=== PATIENT | female | born 1975 | race American Indian/Alaskan Native ===

== ENCOUNTER 2017-11-18 19:44 | Emergency (ER) | payer SELFPAY ==
[2017-11-18] MEDS ORDERED: HYDROmorphone 0.5 MG/0.5 ML Syringe IVPUSH ONE (20:11)
[2017-11-18] MEDS ORDERED: Famotidine 20 MG/2 ML SDV IVPUSH ONE (20:11)
[2017-11-18] MEDS ORDERED: Ondansetron 4 MG/2 ML SDV IVPUSH ONE (20:11)
[2017-11-18] MEDS ORDERED: Sodium Chloride 0.9% 10 ML Syringe FLUSH PRN (20:11)
[2017-11-18] MEDS ORDERED: Sodium Chloride 0.9% 1,000 ML IV ONE (20:55)
[2017-11-18] MEDS ORDERED: Alum Hydrox/Mag Hydrox/Simeth 30 ML, Lidocaine 2% 15 ML PO ONE ×2 (21:17)
[2017-11-18] MEDS ORDERED: HYDROmorphone 0.5 MG/0.5 ML Syringe IVPUSH STA (22:18)
--- NOTE | 2017-11-18 22:35 | EDM.PDOC ---
ED HPI GENERAL MEDICAL PROBLEM - General Chief Complaint: Chest Pain Stated Complaint: CHEST PAIN Time Seen by Provider: 11/18/17 20:04 Source of Information: Reports: Patient, RN Notes Reviewed - History of Present Illness INITIAL COMMENTS - FREE TEXT/NARRATIVE: 42-year-old female comes in with severe upper abdominal pain. Became severe about 4-5 hours ago this past late afternoon. She's been having difficulty with upper abdominal discomfort for much of the last 2 weeks but became more severe this evening. She has had some nausea, diminished appetite. No vomiting or diarrhea. She denies being constipated. No fever or chills. Not aware of ever having had her gallbladder removed. She does at times get burning discomfort of that area of her upper abdomen that will radiate to the lower chest. No Shortness of breath or difficulty breathing. She had quite severe cough 10-14 days ago. She was prescribed a Z-Norbert, finished that a few days ago. Upper Abdomen Pain Score (Numeric/FACES): 10 - Related Data Allergies Allergy/AdvReac Type Severity Reaction Status Date / Time No Known Allergies Allergy Verified 11/18/17 20:07 Home Meds: Home Meds Omeprazole 40 mg PO DAILY #20 cap.sr 11/19/17 [Rx] Past Medical History - Past Surgical History Female Surgical History: Reports: Tubal Ligation Social & Family History - Family History Cardiac: Reports: IN - Tobacco Use Smoking Status *Q: Current Every Day Smoker Years of Tobacco use: 30 Packs/Tins Daily: 1 - Caffeine Use Caffeine Use: Reports: Coffee - Recreational Drug Use Recreational Drug Use: No ED ROS GENERAL - Review of Systems Review Of Systems: See Below Constitutional: Denies: Fever, Chills, Diaphoresis HEENT: Denies: Throat Pain Respiratory: Reports: Cough (She was ill with bad cough a couple of weeks ago, now better). Denies: Shortness of Breath, Pleuritic Chest Pain GI/Abdominal: Reports: Abdominal Pain (Upper abdominal), Decreased Appetite, Nausea. Denies: Diarrhea, Vomiting Musculoskeletal: Reports: Back Pain (Her upper abdominal discomfort does radiate to her back) Skin: Reports: No Symptoms Neurological: Reports: Dizziness ED EXAM, GI/ABD - Physical Exam Exam: See Below General Appearance: Alert, Moderate Distress Throat/Mouth: Normal Inspection, Normal Oropharynx Head: No: Facial Swelling Neck: Supple, Full Range of Motion Respiratory/Chest: No Respiratory Distress, Lungs Clear, Normal Breath Sounds Cardiovascular: Regular Rate, Rhythm GI/Abdominal Exam: Tender (Very tender upper mid abdomen, mild to moderate tenderness right upper quadrant.), Other (Lower abdomen is soft and nontender). No: Guarding, Rebound Back Exam: No: CVA Tenderness (L), Paraspinal Tenderness Neurological: Alert, Oriented, No Motor/Sensory Deficits Skin Exam: Warm, Dry, Normal Color EKG INTERPRETATION EKG Date: 11/18/17 Rhythm: NSR [place]: Normal P-Wave: Present ST-T: Normal Course - Vital Signs Last Recorded V/S: Last Vital Signs Temp 97.7 F 11/18/17 19:54 Pulse 67 11/18/17 20:24 Resp 18 11/18/17 20:24 BP 115/65 11/18/17 20:24 Pulse Ox 100 11/18/17 20:24 - Orders/Labs/Meds Orders: Active Orders 24 hr Category Date Time Status EKG 12 Lead [EKG Documentation Completion] [RC] STAT Care 11/18/17 20:04 Active Peripheral IV Care [RC] . DIRECTED Care 11/18/17 20:11 Active Abdomen 2V AP Flat Upright [CR] Stat Exams 11/18/17 22:52 Taken Abdomen Ltd [US] Stat Exams 11/18/17 22:35 Taken Sodium Chloride 0.9% [Saline Flush] Med 11/18/17 20:11 Active 10 ml FLUSH ASDIRECTED PRN Peripheral IV Insertion Adult [OM.PC] Stat Oth 11/18/17 20:11 Ordered Medication Orders Sodium Chloride (Saline Flush) 10 ml FLUSH ASDIRECTED PRN PRN Reason: Keep Vein Open Last Admin: 11/18/17 20:18 Dose: 10 ml Labs: Laboratory Tests 11/18/17 11/18/17 Range/Units 20:00 20:00 WBC 11.18 H (3.98-10.04) K/mm3 RBC 4.53 (3.98-5.22) M/mm3 Hgb 13.6 (11.2-15.7) gm/L Hct 41.9 (34.1-44.9) % MCV 92.5 (79.4-94.8) fl MCH 30.0 (25.6-32.2) pg MCHC 32.5 (32.2-35.5) g/dl RDW Std Deviation 42.8 (36.4-46.3) fL Plt Count 321 (182-369) K/mm3 MPV 9.9 (9.4-12.3) fl Neut % (Auto) 88.2 H (34.0-71.1) % Lymph % (Auto) 9.6 L (19.3-51.7) % [place] % (Auto) 1.6 L (4.7-12.5) % Eos % (Auto) 0.2 L (0.7-5.8) Baso % (Auto) 0.2 (0.1-1.2) % Neut # (Auto) 9.87 H (1.56-6.13) K/mm3 Lymph # (Auto) 1.07 L (1.18-3.74) K/mm3 [place] # (Auto) 0.18 L (0.24-0.36) K/mm3 Eos # (Auto) 0.02 L (0.04-0.36) K/mm3 Baso # (Auto) 0.02 (0.01-0.08) K/mm3 Manual Slide Review Normal smear Sodium 140 (136-145) mEq/L Potassium 3.9 (3.5-5.1) mEq/L Chloride 105 (98-107) mEq/L Carbon Dioxide 23 (21-32) mEq/L Anion Gap 15.9 H (5-15) BUN 9 (7-18) mg/dL Creatinine 0.7 (0.55-1.02) mg/dL Est Cr Clr Drug Dosing 89.48 mL/min Estimated GFR (MDRD) > 60 (>60) mL/min BUN/Creatinine Ratio 12.9 L (14-18) Glucose 111 H (74-106) mg/dL Calcium 9.7 (8.5-10.1) mg/dL Total Bilirubin 0.5 (0.2-1.0) mg/dL AST 18 (15-37) U/L ALT 22 (14-59) U/L Alkaline Phosphatase 79 (46-116) U/L Total Protein 7.5 (6.4-8.2) g/dl Albumin 4.1 (3.4-5.0) g/dl Globulin 3.4 gm/dL Albumin/Globulin Ratio 1.2 (1-2) Lipase 174 (73-393) U/L Meds: Medications Generic Name Dose Route Start Last Admin Trade Name Brenda PRN Reason Stop Dose Admin Sodium Chloride 10 ml 11/18/17 20:11 11/18/17 20:18 Saline Flush FLUSH 10 ml ASDIRECTED PRN Administration Keep Vein Open Discontinued Medications Generic Name Dose Route Start Last Admin Trade Name Brenda PRN Reason Stop Dose Admin Al Hydroxide/Mg Hydroxide 30 0 ml 11/18/17 21:17 11/18/17 21:27 ml/ Lidocaine HCl 15 ml PO 11/18/17 21:18 45 ml ONETIME ONE Administration Famotidine 20 mg 11/18/17 20:11 11/18/17 20:17 Pepcid IVPUSH 11/18/17 20:12 20 mg ONETIME ONE Administration Hydromorphone HCl 0.5 mg 11/18/17 20:11 11/18/17 20:17 Dilaudid IVPUSH 11/18/17 20:12 0.5 mg ONETIME ONE Administration Hydromorphone HCl 0.5 mg 11/18/17 22:18 11/18/17 22:22 Dilaudid IVPUSH 11/18/17 22:19 0.5 mg NOW STA Administration Sodium Chloride 1,000 mls @ 999 mls/hr 11/18/17 20:55 11/18/17 21:05 Normal Saline IV 11/18/17 21:55 999 mls/hr ONETIME ONE Administration Magnesium Citrate 296 ml 11/19/17 00:36 11/19/17 00:44 Citrate Of Magnesia PO 11/19/17 00:37 296 ml ONETIME ONE Administration Ondansetron HCl 4 mg 11/18/17 20:11 11/18/17 20:17 Zofran IVPUSH 11/18/17 20:12 4 mg ONETIME ONE Administration - Re-Assessments/Exams Free Text/Narrative Re-Assessment/Exam: 11/19/17 00:03. White blood count mildly elevated. Liver enzymes, bilirubin and alkaline phosphatase are normal. Lipase normal. I did order ultrasound of her gallbladder. Ultrasound was not visualized per verbal report from soil field technician. Radiology report shows common bile duct diameter 4.4 mm, no stones, no dilatation. No intrahepatic duct dilatation. See report for further detail. 11/19/17 00:35. Flat and upright of the abdomen does show increased stool and gas pattern primarily in the transverse colon and to some extent ascending and descending. She is resting fairly comfortably at this time. She has had Dilaudid 0.5 mg IV twice IV as well as IV Zofran and Pepcid. Very minimal tenderness upper mid abdomen at this time. Discharge instructions as documented Departure - Departure Time of Disposition: 22:33 Disposition: Home, Self-Care 01 Condition: Fair Clinical Impression: Abdominal pain Qualifiers: Abdominal location: epigastric Qualified Code(s): R10.13 - Epigastric pain - Discharge Information Prescriptions: Omeprazole 40 mg PO DAILY #20 cap.sr Instructions: Abdominal Pain, Adult, [id number] Referrals: PCP,None [Primary Care Provider] - Forms: ED Department Discharge, ED Return to Work/School Form Additional Instructions: Omeprazole 40 mg daily for the next 2 weeks, clear liquids and very bland diet as tolerated, probiotic 2-3 times daily for the next week to 10 days or until symptoms have completely resolved. Mag citrate, drink part of the bottle now, drink the remainder later this morning. Symptoms should now gradually get better over the next few days. Follow-up with your regular medical provider early to mid next week for recheck, return to ED as needed if symptoms worsening in any way. - My Orders Last 24 Hours: My Active Orders 11/18/17 20:04 EKG 12 Lead [EKG Documentation Completion] [RC] STAT 11/18/17 20:11 Peripheral IV Care [RC] . DIRECTED Sodium Chloride 0.9% [Saline Flush] 10 ml FLUSH ASDIRECTED PRN Peripheral IV Insertion Adult [OM.PC] Stat 11/18/17 22:35 Abdomen Ltd [US] Stat 11/18/17 22:52 Abdomen 2V AP Flat Upright [CR] Stat - Assessment/Plan Last 24 Hours: My Active Orders 11/18/17 20:04 EKG 12 Lead [EKG Documentation Completion] [RC] STAT 11/18/17 20:11 Peripheral IV Care [RC] . DIRECTED Sodium Chloride 0.9% [Saline Flush] 10 ml FLUSH ASDIRECTED PRN Peripheral IV Insertion Adult [OM.PC] Stat 11/18/17 22:35 Abdomen Ltd [US] Stat 11/18/17 22:52 Abdomen 2V AP Flat Upright [CR] Stat
[2017-11-19] MEDS ORDERED: Magnesium Citrate Solution 296 ML Bottle PO ONE (00:36)
--- NOTE | 2017-11-19 07:02 | US ---
Addendum: Patient brought back for additional imaging of the gallbladder. This exam shows the gallbladder to be contracted around multiple gallstones. Gallbladder wall shows no discrete thickening. Common bile duct and common hepatic duct measure within normal limits. Impression: 1. Contracted gallbladder around multiple gallstones. Diagnostic code #3 --- Addendum1 above dictated on [11/19/2017 17:02] by [Van Serrano, Hal Parrish] --- --- Addendum1 above signed on [11/19/2017 17:02] by [Van Serrano, Hal Parrish] --- --- Original report below dictated on [11/19/2017 06:21] by [Van Serrano, Hal Parrish] --- --- Original report below signed on [11/19/2017 06:58] by [Van Serrano, Hal Parrish] --- Limited abdominal ultrasound: Multiple real-time images of the upper right abdomen were obtained. Liver shows no focal parenchymal abnormality. Gallbladder not visualized. Common bile duct measures within normal limits. Pancreas appears within normal limits as seen. Right kidney shows no hydronephrosis or mass and has a length of 11.2 cm. Inferior vena cava is patent. Portal vein shows normal hepatopedal flow. Impression: 1. Nonvisualization of the gallbladder. 2. No additional abnormality is identified on right upper quadrant abdominal ultrasound. Diagnostic code #2 --- Addendum1 signed ---
--- NOTE | 2017-11-19 07:02 | CR ---
Abdomen: Supine and upright views of the abdomen were obtained. Comparison: No prior abdominal x-ray. Calcifications are seen within the upper right abdomen. Difficult to exclude gallstones although gallbladder not visualized on recent ultrasound. Findings could otherwise represent a calcified lymph node. Bowel gas pattern appears within normal limits. Phlebolith is seen within the left pelvis. No free air is seen. No discrete soft tissue abnormality is seen. Impression: 1. Calcifications within the upper right abdomen. Differential includes gallstones (although gallbladder not seen on recent ultrasound) or calcified lymph node. 2. Two-view abdominal study is otherwise unremarkable. Diagnostic code #3
== END 2017-11-19 00:55 | disposition home or self-care (01) ==
LOC: JD.ED 19:44
DX: R10.13 Epigastric pain (principal); F17.210 Nicotine dependence, cigarettes, uncomplicated; Z79.899 Other long term (current) drug therapy
CPT/HCPCS: 36415; 74019; 74019-26; 76705; 76705-26; 80053; 83690; 85025; 93005; 93010; 96361; 96374; 96375; 96376; 99284-25; 99285-25; A9270-GY; J1170; J2405; J7040; J7050

== ENCOUNTER 2017-11-23 09:35 | Day surgery (SDC) | payer OTHER, SELFPAY ==
[~2017-11-23 09:35] MED LIST: Lidocaine 1%/Sod Bicarbonate in NS 8.4% 1 ML Syringe IDERM PRN; Sodium Chloride 0.9% 10 ML Syringe FLUSH PRN
[2017-11-23] MEDS: Lactated Ringers 1,000 ML IV SCH ×2 (10:06→23:40)
--- NOTE | 2017-11-23 10:26 | PCM.PREANE ---
Preanesthetic Assessment - Procedure Proposed Procedure: Laparoscopic Cholecystectomy - Anesthesia/Transfusion/Family Hx Anesthesia History: Prior Anesthesia Without Reaction Family History of Anesthesia Reaction: No Transfusion History: No Prior Transfusion(s) - Review of Systems General: Appetite (Decreased.) Pulmonary: Cough (occasionaly productive, infrequent), Other (Smoker 1 ppd, last one this morning. ) Cardiovascular: No Symptoms Gastrointestinal: Abdominal Pain, Difficulty Swallowing (With her sore throat about 10 days ago. Much improved at this time. ) Neurological: Dizziness, Other (Back Pain) Other: Reports: Throat Pain (Improving, on steroids. Right Tonsilar Hypertrophy. ), Depression, Anxiety - Physical Assessment NPO Status Date: 11/23/17 NPO Status Time: 06:30 O2 Sat by Pulse Oximetry: 98 Respiratory Rate: 16 Vital Signs: Last Vital Signs Temp 36.4 C 11/23/17 09:45 Pulse 64 11/23/17 09:45 Resp 16 11/23/17 09:45 BP 126/77 11/23/17 09:45 Pulse Ox 98 11/23/17 09:45 Height: 1.63 m Weight: 73.482 kg Mental Status: Alert & Oriented x3 Airway Class: Mallampati = 1 Dentition: Reports: Caries (Discolored, appear in poor condition. Denies any lose teeth. ) Thyro-Mental Finger Breadths: 2 Mouth Opening Finger Breadths: 3 ROM/Head Extension: Full Lungs: Clear to Auscultation, Normal Respiratory Effort Cardiovascular: Regular Rate, Regular Rhythm - Imaging/EKG Impressions: EKG NSR 73bpm - Allergies Allergies/Adverse Reactions: Allergies Allergy/AdvReac Type Severity Reaction Status Date / Time No Known Allergies Allergy Verified 11/18/17 20:07 - Acknowledgements Anesthesia Type Planned: General Anesthesia Pt an Appropriate Candidate for the Planned Anesthesia: Yes Alternatives and Risks of Anesthesia Discussed w Pt/Guardian: Yes Pt/Guardian Understands and Agrees with Anesthesia Plan: Yes Additional Comments: Patient was diagnosed with influenza 11/02/17. She also had a terrible sore throat. She has frequent problems with tonsilar infections. She was prescribed a z pack and steroid pack. She finished her z pack 5 days ago. She feels better and wishes to proceed with her surgery. She has 2 days left of her steroid. She no longer has a sore throat. She does have chronic inflammation of her right tonsil. Denies possibility of . Tubal ligation noted as well. PreAnesthesia Questionnaire SEAMSTRESS FITTER History: Reports: Endometriosis - Past Surgical History Female Surgical History: Reports: Tubal Ligation - SUBSTANCE USE Smoking Status *Q: Current Every Day Smoker Tobacco Use Within Last Twelve Months: Cigarettes Recreational Drug Use History: No - HOME MEDS Home Medications: Home Meds Omeprazole 40 mg PO DAILY #20 cap.sr 11/19/17 [Rx] Ferrous Sulfate [Iron] 325 mg PO DAILY 11/23/17 [History] methylPREDNISolone [Medrol] 4 mg PO DAILY 11/23/17 [History] - CURRENT (IN HOUSE) MEDS Current Meds: Current Medications Lactated Ringer's (Ringers, Lactated) 1,000 mls @ 125 mls/hr IV ASDIRECTED JAKUB Last Admin: 11/23/17 10:06 Dose: 125 mls/hr Lidocaine/Sodium Bicarbonate (Buffered Lidocaine 1% In Ns 8.4%) 0.25 ml IDERM ONETIME PRN PRN Reason: Prior to IV Start Last Admin: 11/23/17 10:06 Dose: 0.25 ml Sodium Chloride (Saline Flush) 10 ml FLUSH ASDIRECTED PRN PRN Reason: Keep Vein Open
[2017-11-23] MEDS ORDERED: Bupivacaine 0.5%/EPINEPHrine 1:200,000 50 ML MDV ONE (10:40)
[2017-11-23] MEDS ORDERED: Lidocaine 1% with EPINEPHrine 1:100,000 20 ML MDV ONE (10:40)
[2017-11-23] MEDS ORDERED: Propofol 200 MG/20 ML SDV ONE (11:08)
[2017-11-23] MEDS ORDERED: Midazolam 1 MG/ML 2 ML SDV ONE (11:09)
[2017-11-23] MEDS ORDERED: fentaNYL 250 MCG/5 ML SDV ONE ×2 (11:09→12:09)
[2017-11-23] MEDS ORDERED: Dexamethasone 4 MG/ML SDV ONE ×3 (11:10→11:25)
[2017-11-23] MEDS ORDERED: Ondansetron 4 MG/2 ML SDV ONE (11:10)
[2017-11-23] MEDS ORDERED: Lidocaine 1% 4 ML ONE (11:10)
[2017-11-23] MEDS ORDERED: Rocuronium 50 MG/5 ML Vial ONE (11:10)
[2017-11-23] MEDS ORDERED: Lactated Ringers 1,000 ML ONE (11:23)
[2017-11-23] MEDS ORDERED: Ketorolac 30 MG/ML SDV ONE (11:24)
[2017-11-23] MEDS ORDERED: Lidocaine 1% 2 ML ONE ×2 (11:24)
[2017-11-23] MEDS ORDERED: HYDROmorphone 1 MG/ML Syringe ONE ×2 (11:26→12:04)
[2017-11-23] MEDS ORDERED: ceFAZolin 1 GM Vial ONE ×2 (11:28)
[2017-11-23] MEDS ORDERED: diphenhydrAMINE 50 MG/ML SDV IVPUSH PRN (11:49)
[2017-11-23] MEDS ORDERED: fentaNYL 100 MCG/2 ML SDV IVPUSH PRN (11:49)
[2017-11-23] MEDS ORDERED: Ondansetron 4 MG/2 ML SDV IVPUSH PRN (11:49)
[2017-11-23] MEDS ORDERED: Midazolam 1 MG/ML 2 ML SDV IVPUSH PRN (11:49)
[2017-11-23] MEDS ORDERED: Neostigmine Methylsulfate 1 MG/ML 5 ML Syringe ONE (12:05)
[2017-11-23] MEDS ORDERED: Labetalol 100 MG/20 ML MDV ONE (12:18)
--- NOTE | 2017-11-23 12:49 | PCM.OPNOTE ---
- General Post-Op/Procedure Note Date of Surgery/Procedure: 11/23/17 Operative Procedure(s): Laparoscopic cholecystectomy Findings: Chronically inflamed gallbladder with a contracted gallbladder wall and sclerosis of the cystic duct. There was bile sludge. Pre Op Diagnosis: Cholecystitis secondary to cholelithiasis Post-Op Diagnosis: Same Anesthesia Technique: General ET Tube, Local Primary Surgeon: Reid Schaefer Pathology: Gallbladder and contents EBL in mLs: 20 Complications: None Condition: Good Free Text/Narrative:: After adequate general endotracheal tube anesthesia was obtained the patient's abdomen was prepped and draped for a laparoscopic cholecystectomy. After local analgesia was given a supraumbilical incision was made with a 15 blade. The midline was entered. A 12 mm camera port was then inserted under direct vision. CO2 pneumoperitoneum was obtained. 3 -- 5 mm working ports were placed along the right costal margin. Exploration revealed filmy adhesions between the omentum and the body of the gallbladder. The gallbladder was contracted and sclerotic. There was brownish green sludge within the gallbladder. The cystic duct was sclerotic from chronic inflammatory change. I grasped the fundus of the gallbladder and retracted it and the liver in a cephalad direction. I used the hook cautery to separate the omentum from the body of the gallbladder. I grasped Hill's pouch and then divided the peritoneum overlying the gallbladder pulling the cystic duct and cystic artery out to length. The structures were then clipped in continuity then divided with scissors. I took the gallbladder down in a retrograde fashion from its bed with the hook cautery. The gallbladder was placed in a specimen bag and removed through the umbilicus. I irrigated out the gallbladder bed and the right upper quadrant. Reinspection revealed no bile duct leak and no bowel injury. I decannulated the abdomen under direct vision and there was no bleeding from the port sites. The supraumbilical site was closed with a [id number] 0 Vicryl suture. The subcutaneous tissues and skin were closed with Vicryl as well. Steri-Strips and gauze were used for the dressing. Central Office Trouble Shooter photographs were taken for the patient and for the medical record. There were no procedural complications.
--- NOTE | 2017-11-23 12:53 | PCM.POSTAN ---
POST ANESTHESIA ASSESSMENT - MENTAL STATUS Mental Status: Alert - VITAL SIGNS Pulse Rate: 86 SaO2: 97 Resp Rate: 11 Blood Pressure: 149/74 Temperature: 36.5 C - RESPIRATORY Respiratory Status: Respiratory Rate WNL, Airway Patent, O2 Saturation Stable, Supplemental Oxygen - CARDIOVASCULAR CV Status: Pulse Rate WNL, Blood Pressure Stable - GASTROINTESTINAL GI Status: No Symptoms - POST OP HYDRATION Hydration Status: Adequate & Stable
[2017-11-23] MEDS ORDERED: Glycopyrrolate 0.2 MG/ML 5 ML MDV IVPUSH PRN (13:09)
--- NOTE | 2017-11-23 13:31 | PCM48HPAN ---
Post Anesthesia Note - EVALUATION WITHIN 48HRS OF ANESTHETIC Vital Signs in Normal Range: Yes Patient Participated in Evaluation: Yes Respiratory Function Stable: Yes Airway Patent: Yes Cardiovascular Function Stable: Yes Hydration Status Stable: Yes Pain Control Satisfactory: Yes Nausea and Vomiting Control Satisfactory: Yes Mental Status Recovered: Yes Pulse Rate: 86 SaO2: 100 Resp Rate: 16 Temperature: 36.5 C Blood Pressure: 149/74 Pulse Rate: 65 - COMMENTS/OBSERVATIONS Free Text/Narrative:: Patient c/o dizziness with a HR of 46 in the PACU. Robynol 0.2mg IV given with HR responding appropriately in the 60's. Verbal reassurance given with all other vitals stable at this time.
[2017-11-23] MEDS ORDERED: Ondansetron 4 MG Tab.DIS PO PRN (14:16)
[2017-11-23] MEDS: Acetaminophen/Codeine 300-30 MG Tab PO PRN ×2 (16:46→20:40)
[2017-11-23] MEDS: Glycopyrrolate 1 MG Tab PO SCH ×2 (17:23→23:36)
[2017-11-24] MEDS: Acetaminophen/Codeine 300-30 MG Tab PO PRN ×2 (01:24→08:28)
[2017-11-24] MEDS ORDERED: Temazepam 15 MG Cap PO PRN (01:31)
--- NOTE | 2017-11-24 06:53 | PCM.SURGPN ---
- General Info Date of Service: 11/24/17 POD#: 1 Functional Status: Reports: Pain Controlled, Tolerating Diet, Ambulating, Urinating - Review of Systems Gastrointestinal: Reports: Other (Nausea much better.) - Patient Data Vitals - Most Recent: Last Vital Signs Temp 36.6 C 11/23/17 21:00 Pulse 52 L 11/23/17 21:00 Resp 18 11/23/17 21:00 BP 141/87 H 11/23/17 21:00 Pulse Ox 98 11/23/17 21:00 Weight - Most Recent: 73.482 kg I&O - Last 24 Hours: Intake & Output 11/23/17 11/23/17 11/24/17 14:59 22:59 06:59 Intake Total 500 Balance 500 Med Orders - Current: Current Medications Acetaminophen/Codeine Phosphate (Tylenol With Codeine No.3 300mg/30mg) 2 tab PO Q4H PRN PRN Reason: Pain Last Admin: 11/24/17 01:24 Dose: 2 tab Glycopyrrolate (Robinul) 1 mg PO Q8H JAKUB Last Admin: 11/23/17 23:36 Dose: 1 mg Lactated Ringer's (Ringers, Lactated) 1,000 mls @ 125 mls/hr IV ASDIRECTED JAKUB Last Admin: 11/23/17 23:40 Dose: 125 mls/hr Lidocaine/Sodium Bicarbonate (Buffered Lidocaine 1% In Ns 8.4%) 0.25 ml IDERM ONETIME PRN PRN Reason: Prior to IV Start Last Admin: 11/23/17 10:06 Dose: 0.25 ml Methylprednisolone (Medrol) 4 mg PO DAILY [facility] Ondansetron HCl (Zofran Odt) 4 mg PO Q8H PRN PRN Reason: Nausea/Vomiting Pantoprazole Sodium (Protonix) 40 mg PO DAILY [facility] Sodium Chloride (Saline Flush) 10 ml FLUSH ASDIRECTED PRN PRN Reason: Keep Vein Open Temazepam (Restoril) 15 mg PO BEDTIME PRN PRN Reason: sleep Last Admin: 11/24/17 01:47 Dose: 15 mg Discontinued Medications Bupivacaine HCl/Epinephrine Bitart (Marcaine 0.5%/Epinephrine 1:200,000) Confirm Administered Dose 50 ml .ROUTE .STK-MED ONE Stop: 11/23/17 10:41 Last Admin: 11/23/17 11:47 Dose: 11 ml Cefazolin Sodium (Ancef) Confirm Administered Dose 1 gm .ROUTE .STK-MED ONE Stop: 11/23/17 11:29 Cefazolin Sodium (Ancef) Confirm Administered Dose 1 gm .ROUTE .STK-MED ONE Stop: 11/23/17 11:29 Dexamethasone (Dexamethasone) Confirm Administered Dose 4 mg .ROUTE .STK-MED ONE Stop: 11/23/17 11:11 Dexamethasone (Dexamethasone) Confirm Administered Dose 4 mg .ROUTE .STK-MED ONE Stop: 11/23/17 11:26 Dexamethasone (Dexamethasone) Confirm Administered Dose 4 mg .ROUTE .STK-MED ONE Stop: 11/23/17 11:26 Diphenhydramine HCl (Benadryl) 25 mg IVPUSH Q6H PRN PRN Reason: pruritis Stop: 11/23/17 18:00 Fentanyl (Sublimaze) Confirm Administered Dose 250 mcg .ROUTE .STK-MED ONE Stop: 11/23/17 11:10 Fentanyl (Sublimaze) 50 mcg IVPUSH Q5M PRN PRN Reason: Pain Stop: 11/23/17 18:00 Fentanyl (Sublimaze) Confirm Administered Dose 250 mcg .ROUTE .STK-MED ONE Stop: 11/23/17 12:10 Glycopyrrolate () Confirm Administered Dose 1 mg .ROUTE .STK-MED ONE Stop: 11/23/17 12:06 Glycopyrrolate (Robinul) 0.2 mg IVPUSH ONETIME PRN PRN Reason: Other Stop: 11/23/17 13:10 Glycopyrrolate () Confirm Administered Dose 1 mg .ROUTE .STK-MED ONE Stop: 11/23/17 13:24 Hydromorphone HCl (Dilaudid) Confirm Administered Dose 1 mg .ROUTE .STK-MED ONE Stop: 11/23/17 11:27 Hydromorphone HCl (Dilaudid) Confirm Administered Dose 1 mg .ROUTE .STK-MED ONE Stop: 11/23/17 12:05 Lidocaine HCl (Xylocaine-Mpf 1%) Confirm Administered Dose 4 mls @ as directed .ROUTE .STK-MED ONE Stop: 11/23/17 11:11 Lactated Ringer's (Ringers, Lactated) Confirm Administered Dose 1,000 mls @ as directed .ROUTE .STK-MED ONE Stop: 11/23/17 11:24 Lidocaine HCl (Xylocaine-Mpf 1%) Confirm Administered Dose 2 mls @ as directed .ROUTE .STK-MED ONE Stop: 11/23/17 11:25 Lidocaine HCl (Xylocaine-Mpf 1%) Confirm Administered Dose 2 mls @ as directed .ROUTE .STK-MED ONE Stop: 11/23/17 11:25 Ketorolac Tromethamine (Toradol) Confirm Administered Dose 30 mg .ROUTE .STK- MED ONE Stop: 11/23/17 11:25 Labetalol HCl (Normodyne) Confirm Administered Dose 100 mg .ROUTE .STK-MED ONE Stop: 11/23/17 12:19 Lidocaine/Epinephrine (Xylocaine 1% With Epinephrine 1:100,000) Confirm Administered Dose 20 ml .ROUTE .ST-MED ONE Stop: 11/23/17 10:41 Last Admin: 11/23/17 11:47 Dose: 11 ml Midazolam HCl (Versed 1 Mg/Ml) Confirm Administered Dose 2 mg .ROUTE .STK-MED ONE Stop: 11/23/17 11:10 Midazolam HCl (Versed 1 Mg/Ml) 2 mg IVPUSH ONETIME PRN PRN Reason: Sedation Stop: 11/23/17 18:00 Neostigmine Methylsulfate (Neostigmine) Confirm Administered Dose 5 mg .ROUTE .STK-MED ONE Stop: 11/23/17 12:06 Ondansetron HCl (Zofran) Confirm Administered Dose 4 mg .ROUTE .STK-MED ONE Stop: 11/23/17 11:11 Ondansetron HCl (Zofran) 4 mg IVPUSH ONETIME PRN PRN Reason: Nausea/Vomiting Stop: 11/23/17 18:00 Propofol (Diprivan 20 Ml) Confirm Administered Dose 200 mg .ROUTE .STK-MED ONE Stop: 11/23/17 11:09 Rocuronium Iliamna (Zemuron) Confirm Administered Dose 50 mg .ROUTE .STK-MED ONE Stop: 11/23/17 11:11 - Exam Wound/Incisions: Dressing Dry and Intact GI/Abdominal Exam: Tender (At umbilicus) - Problem List & Annotations (1) Chronic cholecystitis with calculus SNOMED Code(s): 39904880 Code(s): K80.10 - CALCULUS OF GALLBLADDER W CHRONIC CHOLECYST W/O OBSTRUCTION Status: Resolved Current Visit: Yes - Problem List Review Problem List Initiated/Reviewed/Updated: Yes - My Orders Last 24 Hours: Active Orders 24 hr Category Date Time Status Admission Status [Patient Status] [ADT] Routine ADT 11/23/17 14:47 Active Communication Order [RC] ROUTINE Care 11/23/17 11:49 Inactive Communication Order [RC] ROUTINE Care 11/23/17 14:14 Active Cooling Warming Measures [RC] ASDIRECTED Care 11/23/17 11:49 Active Notify Provider [RC] ASDIRECTED Care 11/23/17 11:49 Active Oxygen Therapy [RC] ASDIRECTED Care 11/23/17 11:49 Active Peripheral IV Care [RC] . DIRECTED Care 11/23/17 09:18 Active Pulse Oximetry [RC] ASDIRECTED Care 11/23/17 11:49 Active Ready for Discharge [RC] PER UNIT ROUTINE Care 11/23/17 12:51 Active Ready for Discharge [RC] PER UNIT ROUTINE Care 11/24/17 06:51 Ordered Telemetry Monitoring [Cardiac Monitoring] [RC] . Care 11/23/17 14:23 Inactive DIRECTED Verify Patient Consent Obtain [RC] ASDIRECTED Care 11/23/17 09:18 Active Clear Liquid Diet [DIET] Diet 11/23/17 Dinner Active Acetaminophen/Codeine [Tylenol with Codeine No.3 300MG/ Med 11/23/17 14:15 Active 30MG] 2 tab PO Q4H PRN Glycopyrrolate [Robinul] Med 11/23/17 14:15 Active 1 mg PO Q8H Lactated Ringers [Ringers, Lactated] 1,000 ml Med 11/23/17 09:30 Active IV ASDIRECTED Lidocaine 1%/Sod Bicarbonate [Buffered Lidocaine 1% in Med 11/23/17 09:18 Active NS 8.4%] 0.25 ml IDERM ONETIME PRN Ondansetron [Zofran ODT] Med 11/23/17 14:16 Active 4 mg PO Q8H PRN Pantoprazole [ProTONIX] Med 11/24/17 09:00 Active 40 mg PO DAILY Sodium Chloride 0.9% [Saline Flush] Med 11/23/17 09:18 Active 10 ml FLUSH ASDIRECTED PRN Temazepam [Restoril] Med 11/24/17 01:31 Active 15 mg PO BEDTIME PRN methylPREDNISolone [Medrol] Med 11/24/17 09:00 Active 4 mg PO DAILY Medication Administration Instruction [OM.PC] Routine Oth 11/23/17 09:18 Ordered Peripheral IV Insertion Adult [OM.PC] Routine Oth 11/23/17 09:18 Ordered Medication Orders Acetaminophen/Codeine Phosphate (Tylenol With Codeine No.3 300mg/30mg) 2 tab PO Q4H PRN PRN Reason: Pain Last Admin: 11/24/17 01:24 Dose: 2 tab Admin: 11/23/17 20:40 Dose: 2 tab Admin: 11/23/17 16:46 Dose: 2 tab Glycopyrrolate (Robinul) 1 mg PO Q8H JAKUB Last Admin: 11/23/17 23:36 Dose: 1 mg Admin: 11/23/17 17:23 Dose: 1 mg Lactated Ringer's (Ringers, Lactated) 1,000 mls @ 125 mls/hr IV ASDIRECTED [facility] Last Admin: 11/23/17 23:40 Dose: 125 mls/hr Infusion: 11/23/17 18:06 Dose: 125 mls/hr Admin: 11/23/17 10:06 Dose: 125 mls/hr Lidocaine/Sodium Bicarbonate (Buffered Lidocaine 1% In Ns 8.4%) 0.25 ml IDERM ONETIME PRN PRN Reason: Prior to IV Start Last Admin: 11/23/17 10:06 Dose: 0.25 ml Methylprednisolone (Medrol) 4 mg PO DAILY [facility] Ondansetron HCl (Zofran Odt) 4 mg PO Q8H PRN PRN Reason: Nausea/Vomiting Pantoprazole Sodium (Protonix) 40 mg PO DAILY [facility] Sodium Chloride (Saline Flush) 10 ml FLUSH ASDIRECTED PRN PRN Reason: Keep Vein Open Temazepam (Restoril) 15 mg PO BEDTIME PRN PRN Reason: sleep Last Admin: 11/24/17 01:47 Dose: 15 mg - Assessment Assessment (Free Text/Narrative):: Heart rate in the 50s. Stable overnight. Nausea resolved. Patient wants to go home. - Plan Plan (Free Text/Narrative):: Discharge this morning.
[2017-11-24] MEDS: Glycopyrrolate 1 MG Tab PO SCH (08:29)
[2017-11-24] MEDS ORDERED: Pantoprazole 40 MG Tab.CR PO SCH (09:00)
== END 2017-11-24 09:45 | disposition home or self-care (01) ==
LOC: JD.SDS 09:35
PROVIDERS: ATTEND Surgery
DX: K80.10 Calculus of gallbladder with chronic cholecystitis without obstruction (principal); F41.9 Anxiety disorder, unspecified; F32.9 Major depressive disorder, single episode, unspecified; Z79.899 Other long term (current) drug therapy; F17.210 Nicotine dependence, cigarettes, uncomplicated
CPT/HCPCS: 47562; A9270; J0690; J1100; J1170; J1885; J2250; J2405; J2710; J3010; J7120; 00790; J2001; J2704

== ENCOUNTER 2018-02-03 11:01 | Emergency (ER) | payer OTHER, SELFPAY ==
[2018-02-03 12:35] LABS: ACETAMINOPHEN 0 ug/mL (10-30)
[2018-02-03] MEDS ORDERED: Sodium Chloride 0.9% 1,000 ML IV ONE (13:01)
[2018-02-03] MEDS ORDERED: Sodium Chloride 0.9% 10 ML Syringe FLUSH PRN (13:01)
[2018-02-03] MEDS ORDERED: Pantoprazole 40 MG Vial IVPUSH ONE (13:49)
[2018-02-03] MEDS ORDERED: Ondansetron 4 MG/2 ML SDV IVPUSH ONE (15:07)
--- NOTE | 2018-02-03 15:16 | EDM.PDOCBH ---
ED HPI GENERAL MEDICAL PROBLEM - General Chief Complaint: Behavioral/Psych Stated Complaint: SUICIDE ATTEMPT Time Seen by Provider: 02/03/18 12:16 Source of Information: Reports: Patient History Limitations: Reports: No Limitations - History of Present Illness INITIAL COMMENTS - FREE TEXT/NARRATIVE: 42-year-old female is brought in by her neighbor following a suicide attempt. Reportedly the patient took ED ibuprofen p.m., 6 Benadryl and some alcohol at around 2330 last night. States this is the second suicide attempt this week. On Wednesday she did attempt to commit suicide by taking ibuprofen p.m. She states today that she has not taken any alcohol or using street drugs, she does smoke marijuana on occasion. Currently complaining of nausea and shakiness. She did vomit earlier, prior to arrival. She denies any chest pain, shortness of breath , abdominal pain or any headaches. Patient is not currently seeing a psychiatrist or counselor. She is only on iron. Previously on multiple different psychiatric medications including Depakote. Patient is currently on her menstrual cycle. No primary care provider. - Related Data Allergies Allergy/AdvReac Type Severity Reaction Status Date / Time No Known Allergies Allergy Verified 02/03/18 11:17 Home Meds: Home Meds Ferrous Sulfate [Iron] 325 mg PO DAILY 11/23/17 [History] Past Medical History [employer] History: Reports: Endometriosis - Past Surgical History GI Surgical History: Reports: Cholecystectomy Female Surgical History: Reports: Tubal Ligation Social & Family History - Family History Cardiac: Reports: CT - Tobacco Use Smoking Status *Q: Current Every Day Smoker Years of Tobacco use: 35 Packs/Tins Daily: 1 - Caffeine Use Caffeine Use: Reports: Coffee - Recreational Drug Use Recreational Drug Use: No Drug Use in Last 12 Months: No ED ROS GENERAL - Review of Systems Review Of Systems: See Below Constitutional: Reports: Fatigue Respiratory: Denies: Shortness of Breath Cardiovascular: Denies: Chest Pain GI/Abdominal: Reports: Nausea, Vomiting (prior to arrival in the ER). Denies: Abdominal Pain ED EXAM, BEHAVIORAL HEALTH - Physical Exam Exam: See Below Exam Limited By: No Limitations General Appearance: Alert, WD/WN, No Apparent Distress, Anxious Eye Exam: Bilateral Eye: Other (dilated pupils approximately 8 mm in diameter) Throat/Mouth: Normal Inspection, Normal Voice, No Airway Compromise Respiratory/Chest: No Respiratory Distress, Lungs Clear, Normal Breath Sounds Cardiovascular: Normal Peripheral Pulses, Regular Rate, Rhythm, No Murmur GI/Abdominal: Normal Bowel Sounds, Soft, Non-Tender Neurological: Alert, Normal Mood/Affect, Normal Cognition Psychiatric: Alert, Flat Affect, Suicidal Plan, Suicidal Thoughts Skin Exam: Warm, Dry, Normal color. No: Erythema EKG INTERPRETATION EKG Date: 02/03/18 Time: 11:35 Rhythm: NSR Rate (Beats/Min): 80 QRS: RBBB QT: Prolonged (mildly prolonged at 474) EKG Interpretation Comments: Sinus rhythm at 80 bpm. consider left atrial enlargement. Incomplete right bundle branch pattern. QT mildly prolonged QTC of 474. Myself and Dr. Barahona. COURSE, BEHAVIORAL HEALTH COMP - Course Vital Signs: Last Vital Signs Temp 36.3 C 02/03/18 15:08 Pulse 90 02/03/18 15:08 Resp 18 02/03/18 15:08 BP 104/54 L 02/03/18 15:08 Pulse Ox 98 02/03/18 15:08 Orders, Labs, Meds: Active Orders 24 hr Category Date Time Status EKG Documentation Completion [RC] STAT Care 02/03/18 11:31 Active Peripheral IV Care [RC] . DIRECTED Care 02/03/18 13:01 Active DRUG SCREEN, URINE [URCHEM] Stat Lab 02/03/18 11:31 Ordered Sodium Chloride 0.9% [Saline Flush] Med 02/03/18 13:01 Active 10 ml FLUSH ASDIRECTED PRN Peripheral IV Insertion Adult [OM.PC] Routine Oth 02/03/18 13:01 Ordered Medication Orders Sodium Chloride (Saline Flush) 10 ml FLUSH ASDIRECTED PRN PRN Reason: Keep Vein Open Last Admin: 02/03/18 13:35 Dose: 10 ml Laboratory Tests 02/03/18 02/03/18 02/03/18 Range/Units 11:31 11:56 11:56 WBC 16.99 H (3.98-10.04) K/mm3 RBC 5.33 H (3.98-5.22) M/mm3 Hgb 15.9 H (11.2-15.7) gm/L Hct 48.5 H (34.1-44.9) % MCV 91.0 (79.4-94.8) fl MCH 29.8 (25.6-32.2) pg MCHC 32.8 (32.2-35.5) g/dl RDW Std Deviation 49.7 H (36.4-46.3) fL Plt Count 336 (182-369) K/mm3 MPV 9.5 (9.4-12.3) fl Neutrophils % (Manual) 87 H (40-60) % Band Neutrophils % 0 (0-10) % Lymphocytes % (Manual) 11 L (20-40) % Atypical Lymphs % 0 % Monocytes % (Manual) 2 (2-10) % Eosinophils % (Manual) 0 L (0.7-5.8) % Basophils % (Manual) 0 L (0.1-1.2) Platelet Estimate Adequate Macrocytosis 1+ slight RBC Morph Comment Not Reportable Sodium 140 (136-145) mEq/L Potassium 3.7 (3.5-5.1) mEq/L Chloride 105 (98-107) mEq/L Carbon Dioxide 24 (21-32) mEq/L Anion Gap 14.7 (5-15) BUN 11 (7-18) mg/dL Creatinine 1.0 (0.55-1.02) mg/dL Est Cr Clr Drug Dosing 63.96 mL/min Estimated GFR (MDRD) > 60 (>60) mL/min BUN/Creatinine Ratio 11.0 L (14-18) Glucose 107 H (74-106) mg/dL Calcium 10.0 (8.5-10.1) mg/dL Total Bilirubin (0.2-1.0) mg/dL AST (15-37) U/L ALT (14-59) U/L Alkaline Phosphatase (46-116) U/L Total Protein (6.4-8.2) g/dl Albumin (3.4-5.0) g/dl Globulin gm/dL Albumin/Globulin Ratio (1-2) TSH 3rd Generation (0.358-3.74) uIU/mL HCG, Qual (NEGATIVE) Urine Color (Yellow) Urine Appearance (Clear) Urine pH (5.0-8.0) Ur Specific Donner (1.005-1.030) Urine Protein (Negative) Urine Glucose (UA) (Negative) Urine Ketones (Negative) Urine Occult Blood (Negative) Urine Nitrite (Negative) Urine Bilirubin (Negative) Urine Urobilinogen (0.2-1.0) Ur Leukocyte Esterase (Negative) Urine RBC (0-5) /hpf Urine WBC (0-5) /hpf Ur Epithelial Cells (0-5) /hpf Urine Bacteria (FEW) /hpf Urine Mucus (FEW) /hpf Salicylates (2.8-20) mg/dL Urine Opiates Screen Negative (NEGATIVE) Ur Buprenorphine Scrn Negative (NEGATIVE) Ur Oxycodone Screen Negative (NEGATIVE) Urine Methadone Screen Negative (NEGATIVE) Ur Propoxyphene Screen Negative (NEGATIVE) Acetaminophen 0 L (10-30) ug/mL Ur Barbiturates Screen Negative (NEGATIVE) Ur Tricyclics Screen Presumptive positive H (NEGATIVE) Ur Phencyclidine Scrn Negative (NEGATIVE) Ur Amphetamine Screen Negative (NEGATIVE) U Methamphetamines Scrn Negative (NEGATIVE) U Benzodiazepines Scrn Negative (NEGATIVE) U Cocaine Metab Screen Negative (NEGATIVE) U Marijuana (THC) Screen Negative (NEGATIVE) Ethyl Alcohol (0.00) gm% 02/03/18 02/03/18 02/03/18 Range/Units 11:56 11:56 11:56 WBC (3.98-10.04) K/mm3 RBC (3.98-5.22) M/mm3 Hgb (11.2-15.7) gm/L Hct (34.1-44.9) % MCV (79.4-94.8) fl MCH (25.6-32.2) pg MCHC (32.2-35.5) g/dl RDW Std Deviation (36.4-46.3) fL Plt Count (182-369) K/mm3 MPV (9.4-12.3) fl Neutrophils % (Manual) (40-60) % Band Neutrophils % (0-10) % Lymphocytes % (Manual) (20-40) % Atypical Lymphs % % Monocytes % (Manual) (2-10) % Eosinophils % (Manual) (0.7-5.8) % Basophils % (Manual) (0.1-1.2) Platelet Estimate Macrocytosis RBC Morph Comment Sodium 140 (136-145) mEq/L Potassium 3.7 (3.5-5.1) mEq/L Chloride 105 (98-107) mEq/L Carbon Dioxide 23 (21-32) mEq/L Anion Gap 15.7 H (5-15) BUN 11 (7-18) mg/dL Creatinine 1.0 (0.55-1.02) mg/dL Est Cr Clr Drug Dosing 63.96 mL/min Estimated GFR (MDRD) > 60 (>60) mL/min BUN/Creatinine Ratio 11.0 L (14-18) Glucose 106 (74-106) mg/dL Calcium 10.0 (8.5-10.1) mg/dL Total Bilirubin 0.5 (0.2-1.0) mg/dL AST 23 (15-37) U/L ALT 24 (14-59) U/L Alkaline Phosphatase 83 (46-116) U/L Total Protein 8.1 (6.4-8.2) g/dl Albumin 4.7 (3.4-5.0) g/dl Globulin 3.4 gm/dL Albumin/Globulin Ratio 1.4 (1-2) TSH 3rd Generation 1.086 (0.358-3.74) uIU/mL HCG, Qual Negative (NEGATIVE) Urine Color (Yellow) Urine Appearance (Clear) Urine pH (5.0-8.0) Ur Specific Donner (1.005-1.030) Urine Protein (Negative) Urine Glucose (UA) (Negative) Urine Ketones (Negative) Urine Occult Blood (Negative) Urine Nitrite (Negative) Urine Bilirubin (Negative) Urine Urobilinogen (0.2-1.0) Ur Leukocyte Esterase (Negative) Urine RBC (0-5) /hpf Urine WBC (0-5) /hpf Ur Epithelial Cells (0-5) /hpf Urine Bacteria (FEW) /hpf Urine Mucus (FEW) /hpf Salicylates 1.4 L (2.8-20) mg/dL Urine Opiates Screen (NEGATIVE) Ur Buprenorphine Scrn (NEGATIVE) Ur Oxycodone Screen (NEGATIVE) Urine Methadone Screen (NEGATIVE) Ur Propoxyphene Screen (NEGATIVE) Acetaminophen (10-30) ug/mL Ur Barbiturates Screen (NEGATIVE) Ur Tricyclics Screen (NEGATIVE) Ur Phencyclidine Scrn (NEGATIVE) Ur Amphetamine Screen (NEGATIVE) U Methamphetamines Scrn (NEGATIVE) U Benzodiazepines Scrn (NEGATIVE) U Cocaine Metab Screen (NEGATIVE) U Marijuana (THC) Screen (NEGATIVE) Ethyl Alcohol (0.00) gm% 02/03/18 02/03/18 Range/Units 11:56 13:10 WBC (3.98-10.04) K/mm3 RBC (3.98-5.22) M/mm3 Hgb (11.2-15.7) gm/L Hct (34.1-44.9) % MCV (79.4-94.8) fl MCH (25.6-32.2) pg MCHC (32.2-35.5) g/dl RDW Std Deviation (36.4-46.3) fL Plt Count (182-369) K/mm3 MPV (9.4-12.3) fl Neutrophils % (Manual) (40-60) % Band Neutrophils % (0-10) % Lymphocytes % (Manual) (20-40) % Atypical Lymphs % % Monocytes % (Manual) (2-10) % Eosinophils % (Manual) (0.7-5.8) % Basophils % (Manual) (0.1-1.2) Platelet Estimate Macrocytosis RBC Morph Comment Sodium (136-145) mEq/L Potassium (3.5-5.1) mEq/L Chloride (98-107) mEq/L Carbon Dioxide (21-32) mEq/L Anion Gap (5-15) BUN (7-18) mg/dL Creatinine (0.55-1.02) mg/dL Est Cr Clr Drug Dosing mL/min Estimated GFR (MDRD) (>60) mL/min BUN/Creatinine Ratio (14-18) Glucose (74-106) mg/dL Calcium (8.5-10.1) mg/dL Total Bilirubin (0.2-1.0) mg/dL AST (15-37) U/L ALT (14-59) U/L Alkaline Phosphatase (46-116) U/L Total Protein (6.4-8.2) g/dl Albumin (3.4-5.0) g/dl Globulin gm/dL Albumin/Globulin Ratio (1-2) TSH 3rd Generation (0.358-3.74) uIU/mL HCG, Qual (NEGATIVE) Urine Color Red H (Yellow) Urine Appearance Cloudy H (Clear) Urine pH 6.0 (5.0-8.0) Ur Specific Donner > or = 1.030 (1.005-1.030) Urine Protein 2+ H (Negative) Urine Glucose (UA) Negative (Negative) Urine Ketones Trace H (Negative) Urine Occult Blood 3+ H (Negative) Urine Nitrite Negative (Negative) Urine Bilirubin 1+ H (Negative) Urine Urobilinogen 0.2 (0.2-1.0) Ur Leukocyte Esterase Negative (Negative) Urine RBC Too numerous to cnt H (0-5) /hpf Urine WBC 0-5 (0-5) /hpf Ur Epithelial Cells 0-5 (0-5) /hpf Urine Bacteria Few (FEW) /hpf Urine Mucus Not seen (FEW) /hpf Salicylates (2.8-20) mg/dL Urine Opiates Screen (NEGATIVE) Ur Buprenorphine Scrn (NEGATIVE) Ur Oxycodone Screen (NEGATIVE) Urine Methadone Screen (NEGATIVE) Ur Propoxyphene Screen (NEGATIVE) Acetaminophen (10-30) ug/mL Ur Barbiturates Screen (NEGATIVE) Ur Tricyclics Screen (NEGATIVE) Ur Phencyclidine Scrn (NEGATIVE) Ur Amphetamine Screen (NEGATIVE) U Methamphetamines Scrn (NEGATIVE) U Benzodiazepines Scrn (NEGATIVE) U Cocaine Metab Screen (NEGATIVE) U Marijuana (THC) Screen (NEGATIVE) Ethyl Alcohol 0.00 (0.00) gm% Medications Generic Name Dose Route Start Last Admin Trade Name Freq PRN Reason Stop Dose Admin Sodium Chloride 10 ml 02/03/18 13:01 02/03/18 13:35 Saline Flush FLUSH 10 ml ASDIRECTED PRN Administration Keep Vein Open Discontinued Medications Generic Name Dose Route Start Last Admin Trade Name Freq PRN Reason Stop Dose Admin Sodium Chloride 1,000 mls @ 999 mls/hr 02/03/18 13:01 02/03/18 13:35 Normal Saline IV 02/03/18 14:01 999 mls/hr ONETIME ONE Administration Lorazepam 1 mg 02/03/18 15:40 02/03/18 15:50 Ativan IVPUSH 02/03/18 15:41 1 mg ONETIME ONE Administration Ondansetron HCl 4 mg 02/03/18 15:07 02/03/18 15:21 Zofran IVPUSH 02/03/18 15:08 4 mg ONETIME ONE Administration Pantoprazole Sodium 40 mg 02/03/18 13:49 02/03/18 14:06 Protonix Iv IVPUSH 02/03/18 13:50 40 mg ONETIME ONE Administration Re-Assessment/Re-Exam: 13:45 Nursing staff did contact poison control upon arrival to the ER. Recommended symptomatic care and monitoring at this point. Labs including serum bicarbonate and creatinine. EKG to evaluate for prolonged QT I did speak poison control. Vitals at this time her pulse is 67, respirations 20, blood pressure 111/54 she is 99% on room air and does not have a temperature. She is resting comfortably. Continues to complain of nausea but has not had any vomiting since entering the ER. She is also complaining of shakiness. Recommended we continue to monitor at this point. 15:40 Spoke with Lyudmila at the poison control center. States that her dilated pupils will likely take 24-48 hours to resolve. She is resting comfortably. Patient is not tachycardic, pulse in the 60s. She has been able to make urine. No flushing or erythema to the skin. They do feel at this point she is safe to go to an inpatient psychiatric facility and does not require any further intervention. I reviewed this with the patient. She is agreeable to going to an inpatient facility. Spoke with [facility] in [place]. They are full. Awaiting a phone call back from [facility] in [place]. 16:[address] Carroll at [facility] in [place] at accepted patient. [facility] [employer] will transport. Medical Clearance: 02/03/18 16:49 Patient is medically cleared to go to [facility] in [place]. Patient will go by matcher's department. She is instructed patient to Dr. Carroll Discharge vs Psych Eval/Treatment:: 02/03/18 16:49 Patient will go by [facility] Department to [facility] in [place]. She is a direct admission to psychiatry, Dr. Carroll. Departure - Departure Time of Disposition: 16:51 Disposition: DC/Tfer to Psych Hosp/Unit 65 Condition: Fair Clinical Impression: Drug abuse, Suicide attempt - Discharge Information Referrals: PCP,None [Primary Care Provider] - Forms: ED Department Discharge Additional Instructions: Patient to go by [facility] Department to [facility] in [place]. Dr. Carroll accepting. - My Orders Last 24 Hours: My Active Orders 02/03/18 11:31 EKG Documentation Completion [RC] STAT DRUG SCREEN, URINE [URCHEM] Stat 02/03/18 13:01 Peripheral IV Care [RC] . DIRECTED Sodium Chloride 0.9% [Saline Flush] 10 ml FLUSH ASDIRECTED PRN Peripheral IV Insertion Adult [OM.PC] Routine - Assessment/Plan Last 24 Hours: My Active Orders 02/03/18 11:31 EKG Documentation Completion [RC] STAT DRUG SCREEN, URINE [URCHEM] Stat 02/03/18 13:01 Peripheral IV Care [RC] . DIRECTED Sodium Chloride 0.9% [Saline Flush] 10 ml FLUSH ASDIRECTED PRN Peripheral IV Insertion Adult [OM.PC] Routine
[2018-02-03] MEDS ORDERED: LORazepam 2 MG/ML SDV IVPUSH ONE (15:40)
== END 2018-02-03 17:20 ==
LOC: JD.ED 11:01
DX: T14.91XA Suicide attempt, initial encounter (principal); F19.10 Other psychoactive substance abuse, uncomplicated; F17.210 Nicotine dependence, cigarettes, uncomplicated; Z79.899 Other long term (current) drug therapy
CPT/HCPCS: 36415; 80048; 80053; 80306; 81001; 84443; 84703; 85025; 93005; 96361; 96374; 96375; 99285; C9113; G0480; J2060; J2405; J7040; J7050; 99284